=== PATIENT | female | born 1950 | race Caucasian/White ===

== ENCOUNTER 2023-03-10 10:22 | Observation (INO) | payer MEDICARE, BC ==
[2023-03-10] MEDS ORDERED: Sodium Chloride 0.9% 500 ML IV ONE (10:27)
[2023-03-10] MEDS ORDERED: Sodium Chloride 0.9% 10 ML Syringe FLUSH PRN ×3 (10:27→13:30)
[2023-03-10 10:44] LABS: BASOPHILS PERCENT AUTO 0.1 % (0.1-1.3); EOSINOPHILS ABSOLUTE AUTO 0.05 K/uL (0.00-0.40); EOSINOPHILS PERCENT AUTO 0.7 % (0.0-5.4); HEMATOCRIT 45.3 % (34.3-46.0); HEMOGLOBIN 16.3 g/dL (11.2-15.5); IMMATURE GRAN PERCENT AUTO 0.3 % (0.0-0.7); LYMPHOCYTES ABSOLUTE AUTO 1.99 K/uL (0.8-3.3); LYMPHOCYTES PERCENT AUTO 28.9 % (11.4-47.7); MEAN CORPUSCULAR VOLUME 88.8 fL (81.4-99.0); MONOCYTES ABSOLUTE AUTO 0.74 K/uL (0.20-0.90); MONOCYTES PERCENT AUTO 10.8 % (3.3-12.6); NEUTROPHILS ABSOLUTE AUTO 4.07 K/uL (1.0-7.6); NEUTROPHILS PERCENT AUTO 59.2 % (40.0-78.1); PLATELET COUNT,PLT 393 K/uL (130-375); WHITE BLOOD CELL COUNT,WBC 6.9 K/uL (3.2-11.0)
[2023-03-10 10:48] LABS: BASOPHILS ABSOLUTE AUTO 0.01 K/uL (0.00-0.10); IMMATURE GRAN ABSOLUTE AUTO 0.02 K/uL (0.00-0.23)
[2023-03-10 11:04] LABS: PROTHROMBIN TIME 9.9 sec (9.2-10.6); PTT,PARTIAL THROMBOPLSTIN TIME 23.9 sec (21.8-27.3)
[2023-03-10 11:08] LABS: A/G RATIO 0.9 (1.2-2.2); ALANINE AMINOTRANSFERASE,ALT 60 U/L (12-78); ALBUMIN 3.7 g/dL (3.4-5.0); ALKALINE PHOSPHATASE 45 U/L (46-116); ASPARTATE AMNIOTRANSFERASE,AST 42 U/L (15-37); BILIRUBIN TOTAL 0.8 mg/dL (0.2-1.0); BLOOD UREA NITROGEN,BUN 13 mg/dL (7-18); CALCIUM 9.3 mg/dL (8.5-10.1); CARBON DIOXIDE,CO2 29 mmol/L (21-32); CHLORIDE,CL 93 mmol/L (100-108); CREATININE 0.9 mg/dL (0.6-1.0); EST CRCL DRUG DOSING (CG) 42.64 mL/min; ESTIMATED GFR 68 mL/min (>60); GLUCOSE RANDOM 110 mg/dL (74-106); PROTEIN TOTAL,TP 7.9 g/dL (6.4-8.2); SODIUM,NA 133 mmol/L (140-148); TROPONIN I HIGH SENSITIVITY 7.2 pg/mL (<=60.3)
[2023-03-10] MEDS ORDERED: Potassium Chloride 20 MEQ Tab.ER PO ONE ×2 (11:10→17:00)
[2023-03-10] MEDS ORDERED: Sodium Chloride 0.9% 10 ML SDV FLUSH ONE (11:20)
[2023-03-10] MEDS ORDERED: Sodium Chloride 0.9% 100 ML IV SCH (11:30)
[2023-03-10] MEDS ORDERED: Iopamidol 755 Mg/ML 100 ML Bottle IV SCH (11:30)
[2023-03-10] MEDS ORDERED: Aspirin 81 MG Tab.Chew PO ONE (11:37)
[2023-03-10] MEDS ORDERED: Ondansetron 4 MG/2 ML SDV IV PRN (13:30)
[2023-03-10] MEDS ORDERED: Acetaminophen 325 MG Tab PO PRN (13:30)
[2023-03-10] MEDS: Enoxaparin 40 MG/0.4 ML Syringe SUBCUT SCH (14:19)
[2023-03-10] MEDS: Aspirin 325 MG Tab.EC PO SCH (14:26)
[2023-03-10] MEDS ORDERED: traZODone 50 MG Tab PO SCH (21:00)
[2023-03-10] MEDS ORDERED: atorvaSTATin 20 MG Tab PO SCH (21:00)
[2023-03-11] MEDS ORDERED: Pantoprazole 40 MG Tab.CR PO SCH (07:30)
[2023-03-11] MEDS ORDERED: Hydrochlorothiazide/Triamterene 25-37.5 Tab PO SCH (09:00)
[2023-03-11] MEDS ORDERED: Aspirin 325 MG Tab.EC PO SCH (09:00)
[2023-03-11] MEDS ORDERED: Atenolol 25 MG Tab PO SCH (09:00)
[2023-03-11] MEDS ORDERED: Venlafaxine 75 MG Cap.ER PO SCH (09:00)
[2023-03-11] MEDS ORDERED: amLODIPine 5 MG Tab PO SCH (09:00)
[2023-03-11] MEDS ORDERED: Potassium Chloride 20 MEQ Tab.ER PO SCH (09:00)
[2023-03-11] MEDS: Aspirin 325 MG Tab.EC PO SCH (09:20)
[2023-03-11] MEDS: Enoxaparin 40 MG/0.4 ML Syringe SUBCUT SCH (09:23)
[2023-03-11] MEDS ORDERED: atorvaSTATin 20 MG Tab PO ONE (11:15)
== END 2023-03-11 12:48 | disposition home or self-care (01) ==
LOC: JP.ED 10:22 → JP.MS 12:02
PROVIDERS: ADMIT Hospitalist; ATTEND Internal Medicine
DX: G45.9 Transient cerebral ischemic attack, unspecified (principal); I10 Essential (primary) hypertension; E78.00 Pure hypercholesterolemia, unspecified; H53.2 Diplopia; Z20.822 Contact with and (suspected) exposure to COVID-19; Z79.82 Long term (current) use of aspirin; Z79.899 Other long term (current) drug therapy
CPT/HCPCS: 36415; 70450; 70496; 70498; 76377; 80053; 82947; 84132; 84484; 85025; 85610; 85651; 85730; 93005; 96372; 99222; 99238; 99285; A9270; G0378; J1650; J3490; J7040; Q9967; U0002

== ENCOUNTER 2023-03-11 14:11 | Emergency (ER) | payer MEDICARE, BC | END 2023-03-11 15:50 | disposition home or self-care (01) | LOC: JP.ED 14:11 | DX: R41.0 Disorientation, unspecified (principal); E78.00 Pure hypercholesterolemia, unspecified; I10 Essential (primary) hypertension; Z79.899 Other long term (current) drug therapy | CPT/HCPCS: 99284 ==

== ENCOUNTER 2025-01-03 13:36 | Emergency (ER) | payer MEDICARE, BC, MEDICAID ==
[2025-01-03] MEDS: cloNIDine 0.1 MG Tab PO ONE (15:15)
== END 2025-01-03 15:47 | disposition home or self-care (01) ==
LOC: JP.ED 13:36
DX: I11.0 Hypertensive heart disease with heart failure (principal); I50.9 Heart failure, unspecified; Z88.8 Allergy status to other drugs, medicaments and biological substances; Z79.899 Other long term (current) drug therapy
CPT/HCPCS: 99283; A9270

== ENCOUNTER 2025-03-30 11:01 | Emergency (ER) | payer MEDICARE, BC, MEDICAID ==
[2025-03-30] MEDS: Potassium Chloride 20 MEQ Tab.ER PO ONE (12:39)
== END 2025-03-30 13:15 | disposition home or self-care (01) ==
LOC: JP.ED 11:01
DX: E87.1 Hypo-osmolality and hyponatremia (principal); I10 Essential (primary) hypertension; Z79.899 Other long term (current) drug therapy; Z88.8 Allergy status to other drugs, medicaments and biological substances
CPT/HCPCS: 99283; A9270

== ENCOUNTER 2025-05-28 07:13 | Day surgery (SDC) | payer MEDICARE, BC ==
[2025-05-28] MEDS ORDERED: fentaNYL 50 MCG/ML SDV ONE (07:25)
[2025-05-28] MEDS ORDERED: Propofol 200 MG/20 ML SDV ONE (07:25)
[2025-05-28] MEDS: Lactated Ringers 1,000 ML IV SCH (08:10)
[2025-05-28] MEDS ORDERED: Lactated Ringers 1,000 ML ONE (09:40)
== END 2025-05-28 10:35 | disposition home or self-care (01) ==
LOC: JP.SDS 07:13
PROVIDERS: ATTEND Family Medicine
DX: D12.0 Benign neoplasm of cecum (principal); D12.4 Benign neoplasm of descending colon; K63.5 Polyp of colon; F45.8 Other somatoform disorders; E61.1 Iron deficiency; K21.9 Gastro-esophageal reflux disease without esophagitis; E78.00 Pure hypercholesterolemia, unspecified; I10 Essential (primary) hypertension; Z88.8 Allergy status to other drugs, medicaments and biological substances; Z79.899 Other long term (current) drug therapy
CPT/HCPCS: 00811; 45380; J2704; J3010; J7120